=== PATIENT | male | born 1950 | race Caucasian/White ===

== ENCOUNTER 2021-04-03 00:39 | Day surgery (SDC) | payer OTHER, SELFPAY ==
[2021-03-26 09:57] VITALS: BMI 25.4
--- NOTE | 2021-04-02 11:30 | PM.HPGS ---
History of Present Illness History of Present Illness Consent: Risks, benefits, and alternatives have been discussed and questions answered. Patient agrees to proceed with procedure. Chief complaint: neoplasm screening Narrative: Ben Garcia is a 70 year old male Referred for colon cancer screening. his last colonoscopy was about 15 years ago Review of Systems Review of Systems: All systems reviewed & are unremarkable except as noted in HPI and below PMFSH Surgical History Surgical History H/O inguinal hernia repair Family History Family History Father Family history of coronary artery disease Social History Social History Smoking status: Never smoker Second hand tobacco smoke exposure: No Alcohol intake: current Drinks per week: 2 Substance use: never Substance use type: does not use Living arrangements: with family Spiritual care concerns: No Meds Home Medications and Allergies Home Medications Medication Instructions Recorded Confirmed Type cholecalciferol (vitamin D3) 1,250 1,250 mcg PO WEEKLY #12 cap 11/21/20 03/26/21 Rx mcg (50,000 unit) capsule aspirin 81 mg PO DAILY 03/26/21 03/26/21 History Allergies Allergy/AdvReac Type Severity Reaction Status Date / Time cephalexin Allergy Unknown severe rash Verified 04/03/21 07:38 poison muna extract Allergy Unknown Unknown Verified 04/03/21 07:38 sulfamethizole Allergy Unknown severe rash Verified 04/03/21 07:38 trimethoprim Allergy Unknown severe rash Verified 04/03/21 07:38 Exam Resp: Auscultation: clear to auscultation bilaterally Cardio: Rate: regular rate Rhythm: regular rhythm GI: GI Palp: Yes Soft to palpation and No Tenderness to palpation present (GI) Assessment and Plan Assessment and plan (1) Screening for colon cancer: Code(s): Z12.11 - Encounter for screening for malignant neoplasm of colon Status: Acute Assessment and Plan: Colonoscopy with possible biopsy or polypectomy or cautery or injection of substances.
[2021-04-03 07:40] VITALS: BP 118/75; PULSE 78; RESP 20; TEMP 36.8; O2SAT 98; BMI 25.2
[2021-04-03] MEDS: LACTATED RINGERS 1,000 ML 150 ML IV CONT (07:51)
--- NOTE | 2021-04-03 08:07 | WPDANESEPPF ---
Anes - Initial Pre Proc Eval Procedure: Operation Date: 04/03/21 08:30 Proposed Procedures p Screening Colonoscopy - Martin Zhang MD Date/Time: 04/03/21 08:07 Surgeon: Martin Zhang MD Pre Op Diagnosis: neoplasm screening Patient Data Age: 70 Gender: M Height: 1.7 m Weight: 73.3 kg Last Vital Signs Temp 36.8 C 04/03/21 07:40 Pulse 78 04/03/21 07:40 Resp 20 04/03/21 07:40 BP 118/75 04/03/21 07:40 Pulse Ox 98 04/03/21 07:40 Allergies Allergy/AdvReac Type Severity Reaction Status Date / Time cephalexin Allergy Unknown severe rash Verified 04/03/21 07:38 poison muna extract Allergy Unknown Unknown Verified 04/03/21 07:38 sulfamethizole Allergy Unknown severe rash Verified 04/03/21 07:38 trimethoprim Allergy Unknown severe rash Verified 04/03/21 07:38 Home Medications Medication Instructions Recorded Confirmed Type cholecalciferol (vitamin D3) 1,250 1,250 mcg PO WEEKLY #12 cap 11/21/20 03/26/21 Rx mcg (50,000 unit) capsule aspirin 81 mg PO DAILY 03/26/21 03/26/21 History Patient hx anesthesia problems: none Family hx anesthesia problems: none Results Review: All pre-operative results and documents have been reviewed as part of the pre-operative evaluation. [facility] Surgical History Surgical History H/O inguinal hernia repair Family History Family History Father Family history of coronary artery disease Social History Social History Smoking status: Never smoker Second hand tobacco smoke exposure: No Alcohol intake: current Drinks per week: 2 Substance use: never Substance use type: does not use Living arrangements: with family Spiritual care concerns: No Anes - Eval Final PreProcedure Day of Procedure 04/03/21 08:07 Patient weight: normal Heart: regular rate and rhythm Lungs: clear to auscultation Airway: Mallampati scale class II Neurological: alert and oriented Last oral intake: >/= 8 hours ASA classification: I Emergent: no Anesthetic plan: proceed Anesthesia type and monitoring: general GIVS and standard monitoring Results Review: All pre-operative results and documents have been reviewed as part of the pre-operative evaluation. Informed Consent: The patient's anesthetic plan and its attendant risks and benefits were discussed with the patient/family/POA. Questions were solicited and answers provided to the satisfaction of the patient/family/POA.
[2021-04-03] MEDS: SIMETHICONE ORAL SUSPENSION 20 MG/0.3 ML 30 ML BOTTLE 0.6 ML IRRIGATION (08:36)
[2021-04-03 08:45] VITALS: BP 97/58; PULSE 63; RESP 14; O2SAT 98
[2021-04-03 08:55] VITALS: BP 107/89; PULSE 67; RESP 17; O2SAT 98
[2021-04-03 09:05] VITALS: BP 116/78; PULSE 58; RESP 18; O2SAT 97
== END 2021-04-03 09:12 | disposition home or self-care (01) ==
PROVIDERS: PCP Family Medicine; Visit Provider Internal Medicine Gastroenterology
PROC: 0DJD8ZZ Inspection of Lower Intestinal Tract, Via Natural or Artificial Opening Endoscopic (ICD-10-PCS; CPT 45378; principal; 2021-04-03 08:30)
DX: Z12.11 Encounter for screening for malignant neoplasm of colon (principal); D12.8 Benign neoplasm of rectum
CPT/HCPCS: 45385; 88305; J2704; J7120

== ENCOUNTER 2021-06-07 10:16 | Emergency (ER) | payer OTHER, SELFPAY ==
[2021-06-07 10:57] VITALS: BP 139/67; PULSE 66; RESP 18; TEMP 36.4; O2SAT 100
--- NOTE | 2021-06-07 11:36 | ED.SKABFB ---
HPI - Skin/Abscess/Foreign Bdy General Chief complaint: Skin/Abscess/Foreign Body Stated complaint: Rash Time Seen by Provider: 06/07/21 11:10 Source: patient Mode of arrival: ambulatory Limitations: no limitations History of Present Illness HPI narrative: Ben Garcia is a 70 yo male with no PMH who comes [facility] with rash on face and both hands that he thinks developed from doing yard work and cleaning out weeds on Wednesday without gloves Related Data Home Medications Medication Instructions Recorded Confirmed aspirin 81 mg PO DAILY 03/26/21 06/07/21 ergocalciferol (vitamin D2) 50,000 unit PO WEEKLY 06/07/21 06/07/21 Allergies Allergy/AdvReac Type Severity Reaction Status Date / Time cephalexin Allergy Unknown severe rash Verified 06/07/21 10:56 poison muna extract Allergy Unknown Unknown Verified 06/07/21 10:56 sulfamethizole Allergy Unknown severe rash Verified 06/07/21 10:56 trimethoprim Allergy Unknown severe rash Verified 06/07/21 10:56 Review of Systems Review of Systems: CONSTITUTIONAL: Denies fever, chills, sweats. EYES: Denies visual changes, redness, discharge. ENT: Denies rhinorrhea, congestion, sore throat, otalgia. CARDIOVASCULAR: Denies chest pain, palpitations, edema. RESPIRATORY: Denies dyspnea, wheezing, cough GASTROINTESTINAL: Denies abdominal pain, nausea, vomiting, diarrhea. GENITOURINARY: Denies dysuria, hematuria, abnormal discharge SKIN: Has rash on hands and face NEUROLOGIC: Denies numbness, or focal weakness. PSYCHIATRIC: Denies anxiety or depression. PMFSH Past Medical History Medical History Hyperlipidemia Surgical History Surgical History H/O inguinal hernia repair Family History Family History Father Family history of coronary artery disease Social History Social History Smoking status: Never smoker Second hand tobacco smoke exposure: No Alcohol intake: current Drinks per week: 2 Substance use: never Substance use type: does not use Spiritual care concerns: No Exam Narrative: GENERAL: This is a well-nourished, well-developed patient, in mild distress. HEAD: normocephalic, atraumatic. EYES Sclera clear/white. Vision is grossly intact. EARS: External ears normal. Hearing grossly intact. NOSE: External nose normal without nasal discharge, nares without redness, no rhinorrhea. THROAT: Not done NECK: Neck supple, non-tender CARDIOVASCULAR: Regular rate and rhythm without murmurs, gallops, or rubs. RESPIRATORY: Clear to auscultation. Breath sounds equal bilaterally. No wheezes, rales, or rhonchi. GASTROINTESTINAL: Abdomen soft, SKIN: warm, intact with mild erythematous rash on both hands and both cheeks NEURO: awake, alert, and oriented to person, place and time. There were no obvious focal neurologic abnormalities. Steady gait EXTREMITIES: Normal range of motion. BACK: Nontender without deformity Course Course Emergency Course: Patient comes with rash on face and hands Started on prednisone taper pack and Benadryl at night May use hydrocortisone or Benadryl cream to hands. face Level of Care: Express Care Visit Vital Signs Vital signs: Vital Signs Temperature 97.6 F 06/07/21 10:57 Pulse Rate 66 06/07/21 10:57 Respiratory Rate 18 06/07/21 10:57 Blood Pressure 139/67 06/07/21 10:57 Pulse Oximetry 100 06/07/21 10:57 Temperature 97.6 F 06/07/21 10:57 Pulse Rate 66 06/07/21 10:57 Respiratory Rate 18 06/07/21 10:57 Blood Pressure 139/67 06/07/21 10:57 Pulse Oximetry 100 06/07/21 10:57 MDM - Skin/Abscess/Foreign Bdy Differential Diagnosis Differential diagnosis: Likely urticaria, eczema, contact dermatitis and other Critical Care Time Critical Care Time Critical Care Time: No Discharge
== END 2021-06-07 11:48 | disposition home or self-care (01) ==
PROVIDERS: Emergency Provider Nurse Practitioner; PCP Family Medicine
DX: L23.7 Allergic contact dermatitis due to plants, except food (principal); E78.5 Hyperlipidemia, unspecified
CPT/HCPCS: 99213; G0463

== ENCOUNTER 2024-05-18 15:29 | Emergency (ER) | payer OTHER, SELFPAY ==
[2024-05-18 15:34] VITALS: BP 128/64; PULSE 69; RESP 20; TEMP 36.7; O2SAT 98
--- NOTE | 2024-05-18 15:36 | ED_ITS ---
HPI - Skin/Abscess/Foreign Bdy General Chief complaint: Skin/Abscess/Foreign Body Stated complaint: Rash On body Source: patient Mode of arrival: ambulatory Limitations: no limitations History of Present Illness HPI narrative: 73 y/o male presented for c/o itchy red rash to arms and trunk for one week. Says the rash was on his face but has subsided. Pt has taken an occasional Benadryl but says it did not stop the itching. Rash started after pt was clearing brush. Denies lip, tongue, or throat swelling, shortness of breath or wheezing. Denies changes to soap, detergent, lotion, or any other exposures. No one else in the house or any contacts with similar symptoms. Related Data Home Medications ?Medication ?Instructions ?Recorded ?Confirmed ?Last Taken ?Type ergocalciferol (vitamin D2) 1,250 50,000 unit PO WEEKLY 06/07/21 10/25/23 Unknown History mcg (50,000 unit) capsule vitamins A,C,N-euud-sybmrz 4,296 1 cap PO DAILY 05/18/24 05/18/24 Unknown History mcg-226 mg-90 mg capsule (PreserVision AREDS) Allergies Allergy/AdvReac Type Severity Reaction Status Date / Time cephalexin Allergy Unknown severe rash Verified 05/18/24 15:34 poison meagan extract Allergy Unknown Rash Verified 05/18/24 15:34 sulfamethizole Allergy Unknown severe rash Verified 05/18/24 15:34 trimethoprim Allergy Unknown severe rash Verified 05/18/24 15:34 Review of Systems Review of Systems: CONSTITUTIONAL: Denies body aches, fever, chills, or sweats. EYES: Denies visual changes, redness, or discharge. ENT: Denies rhinorrhea, congestion CARDIOVASCULAR: Denies chest pain, palpitations, or edema. RESPIRATORY: Denies cough or dyspnea. GASTROINTESTINAL: Denies abdominal pain, nausea, vomiting, or diarrhea. SKIN: Reports rash MUSCULOSKELETAL: Denies back pain, joint pain, or myalgia. NEUROLOGIC: Denies headache, numbness, tingling, or weakness. [facility] Past Medical History Medical History Atypical nevi Hyperlipidemia Pneumothorax, left Surgical History Surgical History H/O inguinal hernia repair Family History Family History Father Family history of coronary artery disease Social History Social History (Updated 10/25/23 @ 10:21 by Salima Lugo CMA) Social History: somewhat confident with medical forms Smoking status: Never smoker Second hand tobacco smoke exposure: No Alcohol intake: current Drinks per week: 2 Substance use: never Substance use type: does not use Do You Feel Safe in your Home?: Yes Lack of Transportation: No Lack of Food: Never True Current Housing: I Have Housing Concerned About Future Housing: No Difficulty Paying Gas/Electric Bills: No Difficulty Paying for Meds: No Currently Unemployed: No Education: Bachelor's Degree Difficulty w/ Childcare or Family Care: No Living arrangements: with family Gender identity (if verbalized by the patient): Male Sexual Orientation (if Verbalized by the Patient): Straight or Heterosexual Spiritual care concerns: No Comments At time of signature, I have reviewed and agree with nursing past medical, surgical, social and family history unless otherwise noted. Please see nursing chart for further information. There is no relevant family history pertinent to the presenting complaint Exam Narrative: GENERAL: Well-appearing HEAD: Normocephalic, atraumatic. EYES: conjunctivae clear, and EOMI. ENT: Mucous membranes moist. Oropharynx without edema, erythema or lesions. NECK: Supple. No lymphadenopathy CHEST: Clear to auscultation. HEART: Regular rate and rhythm. SKIN: Warm, dry. Erythematous papular rash noted to torso and arms extending to upper thighs. Rash spares the face and back and lower legs NEURO: Alert and oriented x3. Course Course Emergency Course: Patient is aware of diagnosis, understands and agrees to treatment plan. Antici patory guidance given. Patient agrees to follow-up as directed and is aware of reasons to seek care at the emergency department. Portions of this record may have been created with voice recognition software Level of Care: Express Care Visit Vital Signs Vital signs: Vital Signs Temperature 98.1 F 05/18/24 15:34 Pulse Rate 69 05/18/24 15:34 Respiratory Rate 20 05/18/24 15:34 Blood Pressure 128/64 05/18/24 15:34 Pulse Oximetry 98 05/18/24 15:34 Temperature 98.1 F 05/18/24 15:34 Pulse Rate 69 05/18/24 15:34 Respiratory Rate 20 05/18/24 15:34 Blood Pressure 128/64 05/18/24 15:34 Pulse Oximetry 98 05/18/24 15:34 Reviewed MDM - Skin/Abscess/Foreign Bdy MDM Narrative Medical decision making narrative: Discussed physical exam findings. Advised supportive measures and signs/symptoms to go to the ER. Pt is appropriate for outpt treatment and f/u. Instructed patient to go to nearest ER immediately for any worsening symptoms including but not limited to: fever, spreading rash, pain, sore throat, headache, dizziness, chest pain, trouble breathing, or any symptoms concerning to the patient. Differential Diagnosis Differential diagnosis: Likely abscess of skin or subcutaneous tissue, urticaria, herpes zoster, cellulitis and contact dermatitis Discharge Plan Discharge Clinical Impression: Contact dermatitis Patient Disposition: Home, Self-Care Condition: Stable Instructions: Antibiotic Form, Poison Meagan (ED) Additional Instructions: Take steroids and Pepcid as directed. Benadryl every 8 hours as needed for itching. Or take Zyrtec according to package directions. Cool compresses to the sites of itching, avoid hot water. Avoid scratching to reduce the risk of infection Follow up with your primary care provider as needed in 1 week Go to the ER for worsening symptoms or concerns (lip, tongue, throat swelling/itching, trouble breathing etc) Patient Language: Tongan Prescriptions: New famotidine [Pepcid] 40 mg tablet 40 mg PO DAILY Qty: 10 0RF prednisone 20 mg tablet 20 mg PO DAILY Qty: 18 0RF Rx Instructions: take 3 tablets daily for 3 days, then 2 tablets daily for 3 days then 1 tablet daily for 3 days No Action ergocalciferol (vitamin D2) 1,250 mcg (50,000 unit) capsule 50,000 unit PO WEEKLY PreserVision AREDS 4,296 mcg-226 mg-90 mg capsule 1 cap PO DAILY Follow-up/Referrals: PHYSICIAN,ELECTRONIC HEALTH RECORDS SPECIALIST [Primary Care Provider] -
--- OUTSIDE RECORDS SUMMARY | 2024-05-18 15:42 | XMS_ITS | Clinical Summary ---
Author Organization [facility] Address [facility] [place] [address] Care Team Providers Care Customer Service Technician Name Role Phone Unavailable Primary Care Provider Unavailabl e Social History Tobacco Use Types Packs/Day Years Used Date Smoking Tobacco: Never Assessed Sex and Gender Information Value Date Recorded Sex Assigned at Not on file Legal Sex Male 7:30 PM CDT Gender Identity Not on file Sexual Orientation Not on file Plan of Treatment Health Maintenance Due Date Last Done Comments Colorectal Cancer Screening Colonoscopy (10 Years) 1950 Hepatitis C 08/14/1969 DTaP, Tdap and Td Vaccines ( 1 - Tdap) 08/14/1970 Zoster Vaccines (1 of 2) 08/14/2001 Pneumococcal Vaccine: 65+ Ye ars (1 of 1 - PCV) 08/14/2016 COVID-19 Vaccine ( - 2023-2 5 season) 2023 Influenza Adult (#1) 2023 RSV Immunization or 60+ Years (1 - 1-dose 75+ series) 08/14/2026 Meningococcal B Vaccine Aged Out No l onger eligible based on patient's age to complete this topic Meningococcal Vaccine Aged Out No sandra patricia eligible based on patient's age to complete this topic RSV Immunizations Under 20 Months Aged Out No longer eligible based on patient's age to complete this topic
--- OUTSIDE RECORDS SUMMARY | 2024-05-18 15:42 | XMS_ITS | Clinical Summary ---
Author Organization [facility] Address [address] [place] [address] Care Team Providers Care Electronics Processor Name Role Phone MakaylaSheron Primary Care Provider [phone] Source Comments [facility],non-owned Affiliates and Associated Physician Practices is amultiple site organization consisting of ambulatory clinics and hospital sitesin [place], [place] and [place]. This disclosure is being madepursuant to the Care Everywhere program and may not contain all information available regarding this patient. Last updated 17.[facility] Allergies Active Allergy Reactions Criticality Noted Date Comments Sulfa Drugs Unknown 04/10/2018 Sulfamethoxazole W-Trimethoprim Unknown 04/01 Social History Tobacco Use Types Packs/Day Years Used Date Smoking Tobacco: Never Smokeless Tobacco: Never Alcohol Use Standard Drinks/Week Comments Yes 0 (1 standard drink = 0.6 oz pur e alcohol) occasionally drinks wine Sex and Gender Information Value Date Recorded Sex Assigned at Not on file Gender Identity Not on file Sexual Orientation Not on file Last Filed Vital Signs Vital Sign Reading Time Taken Comments Blood Pressure 124/66 04/11/2018 12:14 AM CHILDHOOD TEACHER Pulse 78 04/11/2018 12:14 AM CHILDHOOD TEACHER Temperature 36.7 C (98 F) 04/10/2018 9:32 PM CHILDHOOD TEACHER Respiratory Rate 18 04/11/2018 12:14 AM CHILDHOOD TEACHER Oxygen Saturation 99% 04/11/2018 12:14 AM CHILDHOOD TEACHER Inhaled Oxygen Concentration - - Weight 74.4 kg (164 lb) 04/10/2018 9:32 PM CHILDHOOD TEACHER Height 170.2 cm (5' 7 ) 04/10/2018 9:32 PM CHILDHOOD TEACHER Body Mass Index 25.69 04/10/2018 9:32 PM CHILDHOOD TEACHER Plan of Treatment Health Maintenance Due Date Last Done Comments COLOGUARD (AGES 45-75) - COL ON CA SCREENING 1950 COLON MONITORING 1950 COLONOSCOPY - COLON CA SCREENING 1950 CT COLONOGRAPHY - COLON CA SCREENING 1950 Colorectal Cancer Screening 1950 FIT - COLON CA SCREENING 1950 FLEX SIG - COLON CA SCREENING 1950 LIPID TESTING 1950 HEPATITIS C SCREENING 08/10/1969 DTAP/TDAP/TD VACCINES (1 - Tdap) 08/14/1970 PNEUMOCOCCAL VACCINE 50+ (1 of 1 - PCV) 08/14/2001 ZOSTER VACCINE (1 of 2) 08/14/2001 COVID-19 VACCINE (1 - 2023-2 5 season) 2023 INFLUENZA VACCINE (#1) 2023 DEPRESSION SCREENING 03/01/2024 MEDICARE AWV CALENDAR YEAR 2024 Respiratory Syncytial Virus (RSV) Vaccine Pt: or over 60 yrs (1 - 1-dose 75+ series) 08/14/2026 HEPATITIS B VACCINE Aged Out No longe r eligible based on patient's age to complete this topic HIB VACCINE Aged Out No longer eligi ble based on patient's age to complete this topic HPV VACCINE Aged Out No longer eligi ble based on patient's age to complete this topic MENINGOCOCCAL (Group B) VACC INE SHARED DECISION-MAKING Aged Out No longer eligibl e based on patient's age to complete this topic MENINGOCOCCAL GROUPS A/C/Y/W VACCINE Aged Out No longer eligible b ased on patient's age to complete this topic Care Teams Electronics Processor Relationship Specialty Start Date End Date Sheron Benavides DO [address] [place] [id number] PCP - General 04/08/21
== END 2024-05-18 15:52 | disposition home or self-care (01) ==
PROVIDERS: Emergency Provider Nurse Practitioner Family
DX: L25.9 Unspecified contact dermatitis, unspecified cause (principal); E78.5 Hyperlipidemia, unspecified
CPT/HCPCS: 99213; G0463